=== PATIENT | female | born 1950 | race Caucasian/White ===

== ENCOUNTER 2021-12-29 02:44 | Inpatient (IN) | payer OTHER, MEDICARE ==
[~2021-12-29] VITALS: Ht 165.1 cm; Wt 66.5 kg
[2021-12-29] MEDS ORDERED: fentaNYL PF VIAL 100 MCG/2 ML VIAL IVP ONE (03:15)
[2021-12-29] MEDS ORDERED: IOHEXOL 300 MG/ML 100ML VIAL. IV ONE (03:15)
[2021-12-29] MEDS ORDERED: ONDANSETRON PF 4 MG/2 ML VIAL. IVP ONE (03:15)
[2021-12-29] MEDS ORDERED: IV NORMAL SALINE 1000ML BAG 1,000 ML IV ONE (03:15)
[2021-12-29 03:17] LABS: BASO % 1 % (0-3); EOS % 1 % (0-3); HEMATOCRIT 38.5 % (36.0-47.0); HEMOGLOBIN 12.6 g/dL (12.0-15.5); LYMPH # 1.3 x10^3/uL (1.0-4.8); LYMPH % 17 % (24-48); MEAN CORPUSCULAR HEMOGLOBIN 31 pg (25-35); MEAN CORPUSCULAR HGB CONC 33 g/dL (31-37); MEAN CORPUSCULAR VOLUME 95 fL (79-100); MONO # 0.4 x10^3/uL (0.0-1.1); MONO % 6 % (0-9); NEUT # 5.7 x10^3/uL (1.8-7.7); NEUT % 76 % (31-73); PLATELET COUNT 173 x10^3/uL (140-400); RED BLOOD COUNT 4.03 x10^6/uL (3.50-5.40); RED CELL DISTRIBUTION WIDTH 12.9 % (11.5-14.5); WHITE BLOOD COUNT 7.4 x10^3/uL (4.0-11.0)
--- NOTE | 2021-12-29 03:20 | PHYS DOC ---
Past Medical History Past Surgical History: Hysterectomy Adult General Chief Complaint Chief Complaint: ABDOMINAL PAIN HPI HPI The patient is a 72-year-old female without significant past medical history for which she takes daily medication per her report. She is status post total hyst erectomy in the past. When asked about prior colonoscopy results, she reports a history of diverticulosis. Ms. Reynaga presents for evaluation of acute onset of left lower quadrant > generalized abdominal discomfort with onset at 2 AM, about 1 hour prior to arrival, awakening her from sleep. She was in her normal state of health when she went to bed. She denies any history of similar discomfort in the past. Pain seems to radiate to the left low back. Severity 9 out of 10 at present. Character is achy and sharp. Associated nausea with 1 episode of nonbloody vomiting prior to arrival. No associated fevers, hematemesis, hematochezia or melena, upper respiratory congestion/rhinorrhea, cough, sore throat, shortness of breath or chest pain of any kind, flank pain, midline back pain, dysuria, hematuria, polyuria or oliguria, changes in bowel habits, pain or swelling to arms or legs. Patient is alert, pleasantly and appropriately interactive and in no acute distress with appropriate vital signs upon initial evaluation here in the emergency department. Review of Systems Review of Systems A 12 point review of systems was completed and was negative except where noted in HPI above. Current Medications Current Medications Current Medications Medications (Trade) Dose Ordered Sig/Yusef Start Time Stop Time Status Last Admin Dose Admin Fentanyl Citrate (Fentanyl 2ml Vial) 50 mcg 1X ONCE 12/29/21 03:15 12/29/21 03:16 DC 12/29/21 03:13 50 MCG Iohexol (Omnipaque 300 Mg/ml) 75 ml 1X ONCE 12/29/21 03:15 12/29/21 03:16 DC 12/29/21 03:40 75 ML Ketorolac Tromethamine (Toradol 15mg Vial) 15 mg 1X ONCE 12/29/21 04:45 12/29/21 04:46 DC 12/29/21 04:42 15 MG Morphine Sulfate (Morphine Sulfate) 2 mg 1X ONCE 12/29/21 04:45 12/29/21 04:46 DC 12/29/21 04:43 2 MG Ondansetron HCl (Zofran) 4 mg 1X ONCE 12/29/21 03:15 4/6/22 03:16 DC 12/29/21 03:14 4 MG Sodium Chloride 1,000 ml @ 1,000 mls/hr 1X ONCE 12/29/21 03:15 12/29/21 04:14 DC 12/29/21 03:14 1,000 MLS/HR Allergies Allergies Allergies Coded Allergies Type Severity Reaction Last Updated Verified acetaminophen Allergy Unknown 12/29/21 Yes oxycodone Allergy Unknown 12/29/21 Yes tramadol Allergy Unknown 12/29/21 Yes Physical Exam Physical Exam 72-year-old female appearing nontoxic and in no acute distress. Head is normocephalic and atraumatic. Neck is supple and nontender. Oropharynx is moist. Lungs are clear to auscultation at all stations. There is a normal S1 and S2 without rubs or gallops and capillary refill is appropriate, less than 2 seconds globally. Abdomen is soft and nondistended with mild focal left lower quadrant tenderness to palpation without rebound or guarding. No pulsatile irreducible mass. Skin is warm and dry without cyanosis, clubbing or edema. Psychiatrically, the patient demonstrates appropriate mood and affect and is alert. Evaluation of the extremities reveals BUEs and BLEs neurovascularly intact distally with strength out of 5, sensation intact light touch in all nerve distributions, radial, DP and PT pulses 2+ and equal bilaterally, capillary refill less than 2 seconds, hands and feet warm and well-perfused. No dependent peripheral edema distally. No calf tenderness or swelling bilaterally. Jay's test is negative bilaterally. Current Patient Data Vital Signs Vital Signs Date Time Temp Pulse Resp B/P (MAP) Pulse Ox O2 Delivery O2 Flow Rate FiO2 12/29/21 04:43 18 Room Air 12/29/21 02:54 97.7 65 153/68 (96) 97 97.7 Lab Values Laboratory Tests Test 12/29/21 03:07 12/29/21 03:57 White Blood Count 7.4 x10^3/uL (4.0-11.0) Red Blood Count 4.03 x10^6/uL (3.50-5.40) Hemoglobin 12.6 g/dL (12.0-15.5) Hematocrit 38.5 % (36.0-47.0) Mean Corpuscular Volume 95 fL (79-100) Mean Corpuscular Hemoglobin 31 pg (25-35) Mean Corpuscular Hemoglobin Concent 33 g/dL (31-37) Red Cell Distribution Width 12.9 % (11.5-14.5) Platelet Count 173 x10^3/uL (140-400) Neutrophils (%) (Auto) 76 % (31-73) H Lymphocytes (%) (Auto) 17 % (24-48) L Monocytes (%) (Auto) 6 % (0-9) Eosinophils (%) (Auto) 1 % (0-3) Basophils (%) (Auto) 1 % (0-3) Neutrophils # (Auto) 5.7 x10^3/uL (1.8-7.7) Lymphocytes # (Auto) 1.3 x10^3/uL (1.0-4.8) Monocytes # (Auto) 0.4 x10^3/uL (0.0-1.1) Eosinophils # (Auto) 0.0 x10^3/uL (0.0-0.7) Basophils # (Auto) 0.0 x10^3/uL (0.0-0.2) Sodium Level 143 mmol/L (136-145) Potassium Level 4.0 mmol/L (3.5-5.1) Chloride Level 108 mmol/L (98-107) H Carbon Dioxide Level 22 mmol/L (21-32) Anion Gap 13 (6-14) Blood Urea Nitrogen 29 mg/dL (7-20) H Creatinine 0.9 mg/dL (0.6-1.0) Estimated GFR (Cockcroft-Gault) 61.2 BUN/Creatinine Ratio 32 (6-20) H Glucose Level 119 mg/dL (70-99) H Lactic Acid Level 1.2 mmol/L (0.4-2.0) Calcium Level 9.1 mg/dL (8.5-10.1) Total Bilirubin 0.3 mg/dL (0.2-1.0) Aspartate Amino Transferase (AST) 19 U/L (15-37) Alanine Aminotransferase (ALT) 24 U/L (14-59) Alkaline Phosphatase 51 U/L (46-116) Troponin I High Sensitivity 7 ng/L (4-50) Total Protein 6.8 g/dL (6.4-8.2) Albumin 3.8 g/dL (3.4-5.0) Albumin/Globulin Ratio 1.3 (1.0-1.7) Lipase 114 U/L (73-393) Urine Collection Type Unknown Urine Color (Auto) Colorless Urine Turbidity Clear Urine pH (Auto) 6.5 (<5.0-8.0) Urine Specific [place] 1.012 (1.000-1.030) Urine Protein (Auto) Negative mg/dL (Negative) Urine Glucose (Auto)(UA) Negative mg/dL (Negative) Urine Ketones (Auto) Negative mg/dL (Negative) Urine Blood (Auto) Negative (Negative) Urine Nitrite Negative (Negative) Urine Bilirubin (Auto) Negative (Negative) Urine Urobilinogen (Auto) Normal mg/dL (Normal) Urine Leukocyte Esterase (Auto) Small (Negative) Urine RBC 6-10 /HPF (0-2) Urine WBC 5-10 /HPF (0-4) Urine Squamous Epithelial Cells Few /LPF Urine Amorphous Sediment Present /HPF Urine Bacteria 0 /HPF (0-FEW) Urine Mucus Slight /LPF Laboratory Tests 12/29/21 03:07 Laboratory Tests 12/29/21 03:07 EKG EKG [] Radiology/Procedures Radiology/Procedures Exam: CT abdomen/pelvis with intravenous contrast Indication: Left lower quadrant and lies abdominal pain, nausea and vomiting Comparison: None Technique: Helical CT imaging performed of the abdomen and pelvis after the intravenous administration of 75 mm Omnipaque 300 contrast. Sagittal and coronal reformats were obtained. One or more of the following individualized dose reduction techniques were utilized for this examination: 1. Automated exposure control 2. Adjustment of the mA and/or kV according to patient size 3. Use of iterative reconstruction technique. Findings: Lower chest: Mild interstitial opacities in the lung bases nonspecific. The heart is normal in size. Liver: The liver is normal in size. There are several small circumscribed hypodense liver lesions measuring up to 8 mm, too small to characterize but likely cysts or hemangiomas. Gallbladder/Biliary Tree: Normal. Pancreas: Normal. Spleen: Normal. Adrenal Glands: Normal. Kidneys/Ureters/Bladder: There is mild left hydronephrosis due to a 6 cm calculus in the mid left ureter. There is mild left perinephric fat stranding. There is bilateral nephrolithiasis with calculi measuring up to 5 mm on the right and 3 mm on the left. A subcentimeter hypodensity in the right kidney is too small to characterize but likely a simple cyst. Reproductive Organs: Uterus is surgically absent, no adnexal mass. Stomach, small bowel, and colon: The stomach and small bowel are normal. There is sigmoid diverticulosis. The appendix is normal. Vasculature: No aortic aneurysm. Lymph Nodes: No lymphadenopathy. Peritoneum and retroperitoneum: Free fluid or free air. Bones: No acute osseous abnormality. Miscellaneous: None. IMPRESSION: 1. Mild left hydronephrosis due to a 6 mm calculus in the mid left ureter. Bilateral nephrolithiasis. 2. Sigmoid diverticulosis. Electronically signed by: Ting Sepulveda MD (12/29/2021 4:21 AM) [facility] DICTATED and SIGNED BY: TING SEPULVEDA MD DATE: 12/29/21 0414 Course & Med Decision Making Course & Med Decision Making 72-year-old female with appropriate vital signs presents for evaluation of left lower quadrant abdominal discomfort with onset about an hour prior to arrival overnight. Does have a known history of diverticulosis. Will place IV and give IV fluids and medication for nausea and discomfort as noted and will check labs, EKG and a CT scan of the abdomen and pelvis with contrast. Will then reevaluate. 0500: Patient with 6 mm mid-ureteral stone on the left. Patient's pain is not well controlled after multiple rounds of medication. Discussed options with her and she would like to be admitted for pain control and urology consultation. Let her know we would be glad to facilitate that. Patient is graciously excepted for admission by Dr. Antoine Colmenares. Dragon Disclaimer Dragon Disclaimer This electronic medical record was generated, in whole or in part, using a voice recognition dictation system. Departure Departure Impression: Primary Impression: Left ureteral calculus Additional Impressions: Acute left lower quadrant pain Acute vomiting Disposition: ADMITTED INPATIENT Condition: STABLE Problem Qualifiers AMINA LAU MD Dec 29, 2021 03:20
[2021-12-29 03:25] LABS: CALCIUM 9.1 mg/dL (8.5-10.1); CREATININE 0.9 mg/dL (0.6-1.0); GFR 61.2
[2021-12-29 03:30] LABS: ALBUMIN 3.8 g/dL (3.4-5.0); ALBUMIN/GLOBULIN RATIO 1.3 (1.0-1.7); TOTAL BILIRUBIN 0.3 mg/dL (0.2-1.0); TOTAL PROTEIN 6.8 g/dL (6.4-8.2)
[2021-12-29 04:10] LABS: AMORPHOUS SEDIMENT,UR PRESENT /HPF; BACTERIA,URINE 0 /HPF (0-FEW)
--- NOTE | 2021-12-29 04:24 | RAD ---
Exam: CT abdomen/pelvis with intravenous contrast Indication: Left lower quadrant and lies abdominal pain, nausea and vomiting Comparison: None Technique: Helical CT imaging performed of the abdomen and pelvis after the intravenous administratio n of 75 mm Omnipaque 300 contrast. Sagittal and coronal reformats were obtained. One or more of the following individualized dose reduction techniques were utilized for this examinat ion: 1. Automated exposure control 2. Adjustment of the mA and/or kV according to patient size 3. Use of iterative reconstruction technique. Findings: Lower chest: Mild interstitial opacities in the lung bases nonspecific. The heart is normal in size. Liver: The liver is normal in size. There are several small circumscribed hypodense liver lesions jacy suring up to 8 mm, too small to characterize but likely cysts or hemangiomas. Gallbladder/Biliary Tree: Normal. Pancreas: Normal. Spleen: Normal. Adrenal Glands: Normal. Kidneys/Ureters/Bladder: There is mild left hydronephrosis due to a 6 cm calculus in the mid left ure ter. There is mild left perinephric fat stranding. There is bilateral nephrolithiasis with calculi me asuring up to 5 mm on the right and 3 mm on the left. A subcentimeter hypodensity in the right kidney is too small to characterize but likely a simple cyst. Reproductive Organs: Uterus is surgically absent, no adnexal mass. Stomach, small bowel, and colon: The stomach and small bowel are normal. There is sigmoid diverticulo sis. The appendix is normal. Vasculature: No aortic aneurysm. Lymph Nodes: No lymphadenopathy. Peritoneum and retroperitoneum: Free fluid or free air. Bones: No acute osseous abnormality. Miscellaneous: None. IMPRESSION: 1. Mild left hydronephrosis due to a 6 mm calculus in the mid left ureter. Bilateral nephrolithiasis . 2. Sigmoid diverticulosis. Electronically signed by: Ting Sepulveda MD (12/29/2021 4:21 AM) [facility]
[2021-12-29] MEDS ORDERED: KETOROLAC 15 MG/ML VIAL. IVP ONE (04:45)
[2021-12-29] MEDS ORDERED: MORPHINE SULFATE 2 MG/ML INJ. IVP ONE (04:45)
[2021-12-29] MEDS ORDERED: ONDANSETRON PF 4 MG/2 ML VIAL. IVP PRN (05:15)
[2021-12-29] MEDS ORDERED: MORPHINE SULFATE 2 MG/ML INJ. IVP PRN ×2 (05:15→15:15)
--- NOTE | 2021-12-29 05:41 | EKG ---
[facility] [address] [place] [address] Test Date: 2021-12-29 Test Time: 03:22:03 Pat Name: ALEISHA SERNA Department: Room: Gender: F [employer]: : [id number] Requested By: AMINA LAU Order Number: [id number] Reading MD: Dylan Clayton Measurements Intervals [place] Rate: 65 P: 90 TX: 154 QRS: 74 QRSD: 82 T: 70 QT: 424 QTc: 442 Interpretive Statements SINUS ARRHYTHMIA Electronically Signed On 01-08-2022 9:37:57 CDT by Dylan Clayton
[2021-12-29 06:30] VITALS: BP 114/55
[2021-12-29] MEDS: IV NORMAL SALINE 1000ML BAG 1,000 ML IV SCH ×3 (08:26→20:45)
[2021-12-29] MEDS ORDERED: MORPHINE SULFATE 4 MG/ML INJ. IVP PRN (08:45)
[2021-12-29 11:00] VITALS: BP 121/58
--- NOTE | 2021-12-29 13:09 | PDOC1 ---
History and Physical Date of Admission Date of Admission DATE: 12/29/21 TIME: 12:54 Source Source: Chart review, Patient History of Present Illness History of Present Illness LATE entry, pt seen 0830 Ms. Reynaga is a 72-year-old female without significant past medical history admit for lower pelvic pain, acute left flank pain, Ms. Reynaga presents for evaluation of acute onset of left lower quadrant > generalized abdominal discomfort with onset at 2 AM, about 1 hour prior to arrival, awakening her from sleep. She was in her normal state of health when she went to bed. She denies any history of similar discomfort in the past. Pain seems to radiate to the left low back. Severity 9 out of 10 at present. Character is achy and sharp. Associated nausea with 1 episode of nonbloody vomiting prior to arrival. No associated fevers, hematemesis, hematochezia or melena, upper respiratory congestion/rhinorrhea, cough, sore throat, shortness of breath or chest pain of any kind, flank pain, midline back pain, dysuria, hematuria, polyuria or oliguria, changes in bowel habits, pain or swelling to arms or legs. Past Medical History Cardiovascular: No pertinent hx Pulmonary: No pertinent hx GI: Diverticulosis Hepatobiliary: No pertinent hx Psych: No pertinent hx Musculoskeletal: low back pain Rheumatologic: No pertinent hx Infectious disease: No pertinent hx ENT: No pertinent hx Renal/: No pertinent hx Endocrine: No pertinent hx Past Surgical History Past Surgical History: Family History Family History: No Significant Social History Smoke: No ALCOHOL: none Drugs: None Current Problem List Problem List Problems Medical Problems: (1) Acute left lower quadrant pain Status: Acute (2) Acute vomiting Status: Acute (3) Left ureteral calculus Status: Acute Current Medications Current Medications Current Medications Sodium Chloride 1,000 ml @ 1,000 mls/hr 1X ONCE IV Last administered on 12/29/21at 03:14; Start 12/29/21 at 03:15; Stop 12/29/21 at 04:14; Status DC Ondansetron HCl (Zofran) 4 mg 1X ONCE IVP Last administered on 12/29/21at 03:14; Start 12/29/21 at 03:15; Stop 12/29/21 at 03:16; Status DC Fentanyl Citrate (Fentanyl 2ml Vial) 50 mcg 1X ONCE IVP Last administered on 12/29/21at 03:13; Start 12/29/21 at 03:15; Stop 12/29/21 at 03:16; Status DC Iohexol (Omnipaque 300 Mg/ml) 75 ml 1X ONCE IV Last administered on 12/29/21at 03:40; Start 12/29/21 at 03:15; Stop 12/29/21 at 03:16; Status DC Morphine Sulfate (Morphine Sulfate) 2 mg 1X ONCE IVP Last administered on 12/29/21at 04:43; Start 12/29/21 at 04:45; Stop 12/29/21 at 04:46; Status DC Ketorolac Tromethamine (Toradol 15mg Vial) 15 mg 1X ONCE IVP Last administered on 12/29/21at 04:42; Start 12/29/21 at 04:45; Stop 12/29/21 at 04:46; Status DC Ondansetron HCl (Zofran) 4 mg PRN Q8HRS PRN IVP NAUSEA/VOMITING; Start 12/29/21 at 05:15; Stop 12/30/21 at 05:14 Morphine Sulfate (Morphine Sulfate) 2 mg PRN Q2HR PRN IVP PAIN; Start 12/29/21 at 05:15; Stop 12/29/21 at 08:33; Status DC Sodium Chloride 1,000 ml @ 85 mls/hr [id number] IV Last administered on 12/29/21at 08:26; Start 12/29/21 at 05:15; Stop 12/30/21 at 05:14 Morphine Sulfate (Morphine Sulfate) 4 mg PRN Q2HR PRN IVP PAIN; Start 12/29/21 at 08:45; Stop 12/30/21 at 08:44 Allergies Allergies: Coded Allergies: acetaminophen (Verified Allergy, Unknown, 12/29/21) oxycodone (Verified Allergy, Unknown, 12/29/21) tramadol (Verified Allergy, Unknown, 12/29/21) ROS General: No: Chills, Night Sweats, Fatigue, Malaise, Appetite, Other PSYCHOLOGICAL ROS: No: Anxiety, Behavioral Disorder, Concentration difficultie, Decreased libido, Depression, Disorientation, Hallucinations, Hostility, Irritablity, Memory difficulties, Mood Swings, Obsessive thoughts, Physical abuse, Sexual abuse, Sleep disturbances, Suicidal ideation, Other Eyes: No Blurry vision, No Decreased vision, No Double vision, No Dry eyes, No Excessive tearing, No Eye Pain, No Itchy Eyes, No Loss of vision, No Photophobia, No Scotomata, No Uses contacts, No Uses glasses, No Other HEENT: No: Heacaches, Visual Changes, Hearing change, Nasal congestion, Nasal d ischarge, Oral lesions, Sinus pain, Sore Throat, Epistaxis, Sneezing, Snoring, Tinnitus, Vertigo, Vocal changes, Other Respiratory: No: Cough, Hemoptysis, Orthopnea, Pleuritic Pain, Shortness of breath, SOB with excertion, Sputum Changes, Stridor, Tachypnea, Wheezing, Other Cardiovascular: No Chest Pain, No Palpitations, No Orthopnea, No Paroxysmal Noc. Dyspnea, No Edema, No Lt Headedness, No Other Gastrointestinal: Yes Nausea, Yes Abdominal Pain Genitourinary: YES Pain, YES Flank Pain Musculoskeletal: No Gait Disturbance, No Joint Pain, No Joint Stiffness, No Joint Swelling, No Muscle Pain, No Muscular Weakness, No Pain In:, No Swelling In:, No Other Skin: No Dry Skin, No Eczema, No Hair Changes, No Lumps, No Mole Changes, No Mottling, No Nail Changes, No Pruritus, No Rash, No Skin Lesion Changes, No Other, No Acne Physical Exam General: Alert, Oriented X3, Cooperative, No acute distress HEENT: PERRLA, EOMI Lungs: Clear to auscultation, Normal air movement Heart: RRR, no gallops, no murmurs Rectal Exam: deferred Extremities: No edema Neuro: Normal speech, Normal tone, Sensation intact Psych/Mental Status: Mood NL Vitals Vitals Vital Signs Date Time Temp Pulse Resp B/P (MAP) Pulse Ox O2 Delivery O2 Flow Rate FiO2 12/29/21 11:00 98.3 17 121/58 (79) 93 Room Air 98.3 12/29/21 06:30 90 Labs Labs Laboratory Tests Test 12/29/21 03:07 12/29/21 03:57 White Blood Count 7.4 x10^3/uL (4.0-11.0) Red Blood Count 4.03 x10^6/uL (3.50-5.40) Hemoglobin 12.6 g/dL (12.0-15.5) Hematocrit 38.5 % (36.0-47.0) Mean Corpuscular Volume 95 fL (79-100) Mean Corpuscular Hemoglobin 31 pg (25-35) Mean Corpuscular Hemoglobin Concent 33 g/dL (31-37) Red Cell Distribution Width 12.9 % (11.5-14.5) Platelet Count 173 x10^3/uL (140-400) Neutrophils (%) (Auto) 76 % (31-73) Lymphocytes (%) (Auto) 17 % (24-48) Monocytes (%) (Auto) 6 % (0-9) Eosinophils (%) (Auto) 1 % (0-3) Basophils (%) (Auto) 1 % (0-3) Neutrophils # (Auto) 5.7 x10^3/uL (1.8-7.7) Lymphocytes # (Auto) 1.3 x10^3/uL (1.0-4.8) Monocytes # (Auto) 0.4 x10^3/uL (0.0-1.1) Eosinophils # (Auto) 0.0 x10^3/uL (0.0-0.7) Basophils # (Auto) 0.0 x10^3/uL (0.0-0.2) Sodium Level 143 mmol/L (136-145) Potassium Level 4.0 mmol/L (3.5-5.1) Chloride Level 108 mmol/L (98-107) Carbon Dioxide Level 22 mmol/L (21-32) Anion Gap 13 (6-14) Blood Urea Nitrogen 29 mg/dL (7-20) Creatinine 0.9 mg/dL (0.6-1.0) Estimated GFR (Cockcroft-Gault) 61.2 BUN/Creatinine Ratio 32 (6-20) Glucose Level 119 mg/dL (70-99) Lactic Acid Level 1.2 mmol/L (0.4-2.0) Calcium Level 9.1 mg/dL (8.5-10.1) Total Bilirubin 0.3 mg/dL (0.2-1.0) Aspartate Amino Transf (AST/SGOT) 19 U/L (15-37) Alanine Aminotransferase (ALT/SGPT) 24 U/L (14-59) Alkaline Phosphatase 51 U/L (46-116) Troponin I High Sensitivity 7 ng/L (4-50) Total Protein 6.8 g/dL (6.4-8.2) Albumin 3.8 g/dL (3.4-5.0) Albumin/Globulin Ratio 1.3 (1.0-1.7) Lipase 114 U/L (73-393) Urine Collection Type Unknown Urine Color (Auto) Colorless Urine Turbidity Clear Urine pH (Auto) 6.5 (<5.0-8.0) Urine Specific [place] 1.012 (1.000-1.030) Urine Protein (Auto) Negative mg/dL (Negative) Urine Glucose (Auto)(UA) Negative mg/dL (Negative) Urine Ketones (Auto) Negative mg/dL (Negative) Urine Blood (Auto) Negative (Negative) Urine Nitrite Negative (Negative) Urine Bilirubin (Auto) Negative (Negative) Urine Urobilinogen (Auto) Normal mg/dL (Normal) Urine Leukocyte Esterase (Auto) Small (Negative) Urine RBC 6-10 /HPF (0-2) Urine WBC 5-10 /HPF (0-4) Urine Squamous Epithelial Cells Few /LPF Urine Amorphous Sediment Present /HPF Urine Bacteria 0 /HPF (0-FEW) Urine Mucus Slight /LPF Laboratory Tests Test 12/29/21 03:07 12/29/21 03:57 White Blood Count 7.4 x10^3/uL (4.0-11.0) Red Blood Count 4.03 x10^6/uL (3.50-5.40) Hemoglobin 12.6 g/dL (12.0-15.5) Hematocrit 38.5 % (36.0-47.0) Mean Corpuscular Volume 95 fL (79-100) Mean Corpuscular Hemoglobin 31 pg (25-35) Mean Corpuscular Hemoglobin Concent 33 g/dL (31-37) Red Cell Distribution Width 12.9 % (11.5-14.5) Platelet Count 173 x10^3/uL (140-400) Neutrophils (%) (Auto) 76 % (31-73) Lymphocytes (%) (Auto) 17 % (24-48) Monocytes (%) (Auto) 6 % (0-9) Eosinophils (%) (Auto) 1 % (0-3) Basophils (%) (Auto) 1 % (0-3) Neutrophils # (Auto) 5.7 x10^3/uL (1.8-7.7) Lymphocytes # (Auto) 1.3 x10^3/uL (1.0-4.8) Monocytes # (Auto) 0.4 x10^3/uL (0.0-1.1) Eosinophils # (Auto) 0.0 x10^3/uL (0.0-0.7) Basophils # (Auto) 0.0 x10^3/uL (0.0-0.2) Sodium Level 143 mmol/L (136-145) Potassium Level 4.0 mmol/L (3.5-5.1) Chloride Level 108 mmol/L (98-107) Carbon Dioxide Level 22 mmol/L (21-32) Anion Gap 13 (6-14) Blood Urea Nitrogen 29 mg/dL (7-20) Creatinine 0.9 mg/dL (0.6-1.0) Estimated GFR (Cockcroft-Gault) 61.2 BUN/Creatinine Ratio 32 (6-20) Glucose Level 119 mg/dL (70-99) Lactic Acid Level 1.2 mmol/L (0.4-2.0) Calcium Level 9.1 mg/dL (8.5-10.1) Total Bilirubin 0.3 mg/dL (0.2-1.0) Aspartate Amino Transf (AST/SGOT) 19 U/L (15-37) Alanine Aminotransferase (ALT/SGPT) 24 U/L (14-59) Alkaline Phosphatase 51 U/L (46-116) Troponin I High Sensitivity 7 ng/L (4-50) Total Protein 6.8 g/dL (6.4-8.2) Albumin 3.8 g/dL (3.4-5.0) Albumin/Globulin Ratio 1.3 (1.0-1.7) Lipase 114 U/L (73-393) Urine Collection Type Unknown Urine Color (Auto) Colorless Urine Turbidity Clear Urine pH (Auto) 6.5 (<5.0-8.0) Urine Specific [place] 1.012 (1.000-1.030) Urine Protein (Auto) Negative mg/dL (Negative) Urine Glucose (Auto)(UA) Negative mg/dL (Negative) Urine Ketones (Auto) Negative mg/dL (Negative) Urine Blood (Auto) Negative (Negative) Urine Nitrite Negative (Negative) Urine Bilirubin (Auto) Negative (Negative) Urine Urobilinogen (Auto) Normal mg/dL (Normal) Urine Leukocyte Esterase (Auto) Small (Negative) Urine RBC 6-10 /HPF (0-2) Urine WBC 5-10 /HPF (0-4) Urine Squamous Epithelial Cells Few /LPF Urine Amorphous Sediment Present /HPF Urine Bacteria 0 /HPF (0-FEW) Urine Mucus Slight /LPF VTE Prophylaxis Ordered VTE Prophylaxis Devices: Yes VTE Pharmacological Prophylaxi: Yes Assessment/Plan Assessment/Plan acute flank pain - urolithiasis, pain control consult URO, pain better IMPRESSION: 1. Mild left hydronephrosis due to a 6 mm calculus in the mid left ureter. Bilateral nephrolithiasis. 2. Sigmoid diverticulosis. Justifications for Admission Other Justification JOSELYN BRAMBILA MD Dec 29, 2021 13:09
--- NOTE | 2021-12-29 13:58 | PDOC2 ---
UROLOGY CONSULT DOS: DATE: 12/29/21 TIME: 13:53 Reason for Consult: Kidney stone 72F is admitted to the hospital for left-sided flank pain. Patient states it started in the middle of the night. Sharp and constant in nature. Radiating from the left flank to the left groin. CT imaging performed in the ER shows a mid left ureteral 6 mm obstructing stone. She has a history of stones over 30 years ago that she passed spontaneously. She does not follow with urology regularly. She has never had any procedures or interventions. She denies fevers, gross hematuria, dysuria. Pain is currently controlled. She has been straining her urine throughout the day today and has not been able to pass the stone. Initially had some nausea and vomiting associated with the pain which has resolved. Past medical history significant for breast cancer in remission, takes daily anastrozole. She does not take anticoagulation. ROS Constitutional: Denies fevers, chills, weakness Cardiovascular: Denies chest pain, palpitations Respiratory: Denies shortness of breath, wheezing, dyspnea on exertion GI: + abdominal pain, nausea, vomiting : Denies dysuria, frequency, urgency, hematuria, urinary retention,+ flank pain Skin: Denies rash, bruising Musculoskeletal: Denies extremity pain, extremity edema Psychiatric: Denies stress, anxiety Past Surgical History: No pertinent history Current Medications Current Medications Sodium Chloride 1,000 ml @ 1,000 mls/hr 1X ONCE IV Last administered on 12/29/21at 03:14; Start 12/29/21 at 03:15; Stop 12/29/21 at 04:14; Status DC Ondansetron HCl (Zofran) 4 mg 1X ONCE IVP Last administered on 12/29/21at 03:14; Start 12/29/21 at 03:15; Stop 12/29/21 at 03:16; Status DC Fentanyl Citrate (Fentanyl 2ml Vial) 50 mcg 1X ONCE IVP Last administered on 12/29/21at 03:13; Start 12/29/21 at 03:15; Stop 12/29/21 at 03:16; Status DC Iohexol (Omnipaque 300 Mg/ml) 75 ml 1X ONCE IV Last administered on 12/29/21at 03:40; Start 12/29/21 at 03:15; Stop 12/29/21 at 03:16; Status DC Morphine Sulfate (Morphine Sulfate) 2 mg 1X ONCE IVP Last administered on 12/29/21at 04:43; Start 12/29/21 at 04:45; Stop 12/29/21 at 04:46; Status DC Ketorolac Tromethamine (Toradol 15mg Vial) 15 mg 1X ONCE IVP Last administered on 12/29/21at 04:42; Start 12/29/21 at 04:45; Stop 12/29/21 at 04:46; Status DC Ondansetron HCl (Zofran) 4 mg PRN Q8HRS PRN IVP NAUSEA/VOMITING; Start 12/29/21 at 05:15; Stop 12/30/21 at 05:14 Morphine Sulfate (Morphine Sulfate) 2 mg PRN Q2HR PRN IVP PAIN; Start 12/29/21 at 05:15; Stop 12/29/21 at 08:33; Status DC Sodium Chloride 1,000 ml @ 85 mls/hr [id number] IV Last administered on 12/29/21at 08:26; Start 12/29/21 at 05:15; Stop 12/30/21 at 05:14 Morphine Sulfate (Morphine Sulfate) 4 mg PRN Q2HR PRN IVP PAIN; Start 12/29/21 at 08:45; Stop 12/30/21 at 08:44 Allergies: Coded Allergies: acetaminophen (Verified Allergy, Unknown, 12/29/21) oxycodone (Verified Allergy, Unknown, 12/29/21) tramadol (Verified Allergy, Unknown, 12/29/21) Physical Examination GENERAL: awake, alert, oriented SKIN: warm, dry RESPIRATORY: Aerating well, symmetrical expansion GI: Soft, mild left lower quadrant tenderness, no guarding, no rebound : Normal anatomy, no lesions, left CVA tenderness MUSCULOSKELETAL: Moves all extremities, no edema NEURO: No gross abnormalities PSYCHIATRIC: Normal mood, normal affect, pleasant DOES THIS PATIENT HAVE URINARY: No VITALS Vital Signs Date Time Temp Pulse Resp B/P (MAP) Pulse Ox O2 Delivery O2 Flow Rate FiO2 12/29/21 11:00 98.3 17 121/58 (79) 93 Room Air 98.3 12/29/21 06:30 90 Labs Laboratory Tests Test 12/29/21 03:07 12/29/21 03:57 White Blood Count 7.4 x10^3/uL (4.0-11.0) Red Blood Count 4.03 x10^6/uL (3.50-5.40) Hemoglobin 12.6 g/dL (12.0-15.5) Hematocrit 38.5 % (36.0-47.0) Mean Corpuscular Volume 95 fL (79-100) Mean Corpuscular Hemoglobin 31 pg (25-35) Mean Corpuscular Hemoglobin Concent 33 g/dL (31-37) Red Cell Distribution Width 12.9 % (11.5-14.5) Platelet Count 173 x10^3/uL (140-400) Neutrophils (%) (Auto) 76 % (31-73) Lymphocytes (%) (Auto) 17 % (24-48) Monocytes (%) (Auto) 6 % (0-9) Eosinophils (%) (Auto) 1 % (0-3) Basophils (%) (Auto) 1 % (0-3) Neutrophils # (Auto) 5.7 x10^3/uL (1.8-7.7) Lymphocytes # (Auto) 1.3 x10^3/uL (1.0-4.8) Monocytes # (Auto) 0.4 x10^3/uL (0.0-1.1) Eosinophils # (Auto) 0.0 x10^3/uL (0.0-0.7) Basophils # (Auto) 0.0 x10^3/uL (0.0-0.2) Sodium Level 143 mmol/L (136-145) Potassium Level 4.0 mmol/L (3.5-5.1) Chloride Level 108 mmol/L (98-107) Carbon Dioxide Level 22 mmol/L (21-32) Anion Gap 13 (6-14) Blood Urea Nitrogen 29 mg/dL (7-20) Creatinine 0.9 mg/dL (0.6-1.0) Estimated GFR (Cockcroft-Gault) 61.2 BUN/Creatinine Ratio 32 (6-20) Glucose Level 119 mg/dL (70-99) Lactic Acid Level 1.2 mmol/L (0.4-2.0) Calcium Level 9.1 mg/dL (8.5-10.1) Total Bilirubin 0.3 mg/dL (0.2-1.0) Aspartate Amino Transf (AST/SGOT) 19 U/L (15-37) Alanine Aminotransferase (ALT/SGPT) 24 U/L (14-59) Alkaline Phosphatase 51 U/L (46-116) Troponin I High Sensitivity 7 ng/L (4-50) Total Protein 6.8 g/dL (6.4-8.2) Albumin 3.8 g/dL (3.4-5.0) Albumin/Globulin Ratio 1.3 (1.0-1.7) Lipase 114 U/L (73-393) Urine Collection Type Unknown Urine Color (Auto) Colorless Urine Turbidity Clear Urine pH (Auto) 6.5 (<5.0-8.0) Urine Specific [place] 1.012 (1.000-1.030) Urine Protein (Auto) Negative mg/dL (Negative) Urine Glucose (Auto)(UA) Negative mg/dL (Negative) Urine Ketones (Auto) Negative mg/dL (Negative) Urine Blood (Auto) Negative (Negative) Urine Nitrite Negative (Negative) Urine Bilirubin (Auto) Negative (Negative) Urine Urobilinogen (Auto) Normal mg/dL (Normal) Urine Leukocyte Esterase (Auto) Small (Negative) Urine RBC 6-10 /HPF (0-2) Urine WBC 5-10 /HPF (0-4) Urine Squamous Epithelial Cells Few /LPF Urine Amorphous Sediment Present /HPF Urine Bacteria 0 /HPF (0-FEW) Urine Mucus Slight /LPF Laboratory Tests Test 12/29/21 03:07 12/29/21 03:57 White Blood Count 7.4 x10^3/uL (4.0-11.0) Red Blood Count 4.03 x10^6/uL (3.50-5.40) Hemoglobin 12.6 g/dL (12.0-15.5) Hematocrit 38.5 % (36.0-47.0) Mean Corpuscular Volume 95 fL (79-100) Mean Corpuscular Hemoglobin 31 pg (25-35) Mean Corpuscular Hemoglobin Concent 33 g/dL (31-37) Red Cell Distribution Width 12.9 % (11.5-14.5) Platelet Count 173 x10^3/uL (140-400) Neutrophils (%) (Auto) 76 % (31-73) Lymphocytes (%) (Auto) 17 % (24-48) Monocytes (%) (Auto) 6 % (0-9) Eosinophils (%) (Auto) 1 % (0-3) Basophils (%) (Auto) 1 % (0-3) Neutrophils # (Auto) 5.7 x10^3/uL (1.8-7.7) Lymphocytes # (Auto) 1.3 x10^3/uL (1.0-4.8) Monocytes # (Auto) 0.4 x10^3/uL (0.0-1.1) Eosinophils # (Auto) 0.0 x10^3/uL (0.0-0.7) Basophils # (Auto) 0.0 x10^3/uL (0.0-0.2) Sodium Level 143 mmol/L (136-145) Potassium Level 4.0 mmol/L (3.5-5.1) Chloride Level 108 mmol/L (98-107) Carbon Dioxide Level 22 mmol/L (21-32) Anion Gap 13 (6-14) Blood Urea Nitrogen 29 mg/dL (7-20) Creatinine 0.9 mg/dL (0.6-1.0) Estimated GFR (Cockcroft-Gault) 61.2 BUN/Creatinine Ratio 32 (6-20) Glucose Level 119 mg/dL (70-99) Lactic Acid Level 1.2 mmol/L (0.4-2.0) Calcium Level 9.1 mg/dL (8.5-10.1) Total Bilirubin 0.3 mg/dL (0.2-1.0) Aspartate Amino Transf (AST/SGOT) 19 U/L (15-37) Alanine Aminotransferase (ALT/SGPT) 24 U/L (14-59) Alkaline Phosphatase 51 U/L (46-116) Troponin I High Sensitivity 7 ng/L (4-50) Total Protein 6.8 g/dL (6.4-8.2) Albumin 3.8 g/dL (3.4-5.0) Albumin/Globulin Ratio 1.3 (1.0-1.7) Lipase 114 U/L (73-393) Urine Collection Type Unknown Urine Color (Auto) Colorless Urine Turbidity Clear Urine pH (Auto) 6.5 (<5.0-8.0) Urine Specific [place] 1.012 (1.000-1.030) Urine Protein (Auto) Negative mg/dL (Negative) Urine Glucose (Auto)(UA) Negative mg/dL (Negative) Urine Ketones (Auto) Negative mg/dL (Negative) Urine Blood (Auto) Negative (Negative) Urine Nitrite Negative (Negative) Urine Bilirubin (Auto) Negative (Negative) Urine Urobilinogen (Auto) Normal mg/dL (Normal) Urine Leukocyte Esterase (Auto) Small (Negative) Urine RBC 6-10 /HPF (0-2) Urine WBC 5-10 /HPF (0-4) Urine Squamous Epithelial Cells Few /LPF Urine Amorphous Sediment Present /HPF Urine Bacteria 0 /HPF (0-FEW) Urine Mucus Slight /LPF Assessment/Plan --Kidney stone CT imaging showing a mid left ureteral 6 mm calculi with obstruction. Creatinine stable at 0.9, white count 7.4. UA without infection. She is not septic or toxic appearing. Discussed stone management options including observation, ESWL, ureteroscopy. We will proceed with cystoscopy, left-sided ureteroscopy, laser of stone and stent placement. Risks explained including bleeding, infection, injury to organs, complications with anesthesia, etc. Surgery scheduled at [address] Traore today. She has been n.p.o. Ancef ordered preoperatively. Consent to be obtained. Patient aware that she will need to remove the stent if a string is left in the next 3 to 5 days. We will have her follow-up in the office for stone prevention strategies as well as KUB in 3 months. Please have her call our office at [phone]. Urology to follow. D/w ADRIÁN Rizzo Dec 29, 2021 13:58
[2021-12-29 15:00] VITALS: BP 119/67
[2021-12-29] MEDS ORDERED: fentaNYL PF VIAL 100 MCG/2 ML VIAL IVP PRN ×2 (15:15)
[2021-12-29] MEDS ORDERED: HYDROmorphone 2 MG/ML INJ. IVP PRN (15:15)
[2021-12-29] MEDS ORDERED: IV RINGERS,LACTATED 1000ML 1,000 ML IV SCH (15:15)
[2021-12-29] MEDS ORDERED: PROCHLORPERAZINE 10 MG/2 ML VIAL. IVP PRN (15:15)
--- NOTE | 2021-12-29 15:21 | NUR ---
SS following for discharge planning. SS reviewed pt chart and discussed with pt RN. Pt is from home and is currently on room air. COVID19 negative. Urology consulted. Pt having surgical procedure with Urology today. SS will continue to follow for discharge planning.
--- NOTE | 2021-12-29 17:04 | NUR ---
Patient taken to surgery. Report called to Danielito MURRAY on . Patient can go home tonight if surgeon ok with doing that.
[2021-12-29] MEDS ORDERED: IOHEXOL 300 MG/ML 50 ML VIAL. ONE (17:49)
[2021-12-29] MEDS ORDERED: LIDOCAINE 2% JELLY 6ML IN APPLICATOR. ONE (17:50)
[2021-12-29] MEDS ORDERED: fentaNYL PF VIAL 100 MCG/2 ML VIAL ONE (19:29)
--- NOTE | 2021-12-29 20:35 | PDOC4 ---
OPERATIVE NOTE Pre-Op Diagnosis: Left mid ureteral stone Post-Op Diagnosis: Left mid ureteral stone Procedure Performed: 1. Cystoscopy with bilateral retrograde pyelograms. 2. Left ureteroscopy with stone laser and basketing of stone fragments. 3. Left ureteral stent placement Surgeon: Taras Traore MD Anesthesia Type: General Blood Loss: None Specimans Obtained: Left ureteral stone Findings: left ureteral stone Complications: None Operative Note: Once patient was taken to the operating room she was placed supine on operating table. General anesthetic was established. Patient's position was changed to a dorsolithotomy and genital area was prepped in usual surgical fashion. 21 Welsh rigid cystoscope was introduced into the bladder and bladder was inspected. No abnormalities were noted. Bladder retrograde pyelograms were performed using 5 Welsh open-ended catheter. No abnormalities were noted on the right side. On the left side we can appreciate the filling defect in the midportion of the ureter consistent with known mid ureteral stone. 0.035 guidewire was placed into the left ureter followed by 11/13 ureteral access sheath. Flexible ureteroscope was introduced into the ureter per access sheath and approximately 6 mm stone was systematically fragmented with holmium laser and fragments were taken out of the ureter with 0 tip basket. No inadvertent injuries to the ureter were noted on the way out. Using safety guidewire a 6 Welsh 24 cm double-J stent was placed into the left kidney under fluoroscopy guidance. Both proximal distal coils were observed. String was left attached. Patient's anesthesia was reversed and she was transported to postanesthesia care unit in stable condition. TARAS TRAORE MD Dec 29, 2021 20:35
[2021-12-29] MEDS ORDERED: DEXAMETHASONE SOD PHOS 4 MG/ML VIAL ONE (20:42)
[2021-12-29] MEDS ORDERED: ONDANSETRON PF 4 MG/2 ML VIAL. ONE (20:42)
[2021-12-29] MEDS ORDERED: LIDOCAINE 2% PF 5 ML VIAL. ONE (20:42)
[2021-12-29] MEDS ORDERED: SEVOFLURANE 61 TO 120 MINUTES. IH ONE (20:42)
[2021-12-29] MEDS ORDERED: PROPOFOL 10 MG/ML (20ML) VIAL. IV ONE (20:42)
[2021-12-29] MEDS ORDERED: NALOXONE 0.4 MG/ML VIAL. IV PRN (20:45)
[2021-12-29] MEDS ORDERED: diphenhydrAMINE HCL 25 MG CAPSULE PO PRN (20:45)
[2021-12-29] MEDS ORDERED: IV NORMAL SALINE 1000ML BAG 1,000 ML IV SCH (20:45)
[2021-12-29] MEDS ORDERED: KETOROLAC 15 MG/ML VIAL. IV PRN (20:45)
[2021-12-29] MEDS ORDERED: HYDROmorphone 2 MG/ML INJ. IV PRN (20:45)
[2021-12-29] MEDS ORDERED: 0.9 % SODIUM CHLORIDE 10 ML DISP.SYRIN. IV PRN (20:45)
[2021-12-29] MEDS: ACETAMINOPHEN 325 MG TABLET. PO SCH (22:00)
[2021-12-29] MEDS: GABAPENTIN 300 MG CAPSULE. PO SCH (22:00)
[2021-12-29 23:25] VITALS: BP 112/48
[2021-12-29 23:52] VITALS: BP 105/47
[2021-12-30 00:21] VITALS: BP 103/43
[2021-12-30] MEDS: IV NORMAL SALINE 1000ML BAG 1,000 ML IV SCH ×2 (04:47→10:05)
[2021-12-30] MEDS: ACETAMINOPHEN 325 MG TABLET. PO SCH ×2 (06:00→14:00)
[2021-12-30 07:00] VITALS: BP 96/50
[2021-12-30 07:45] LABS: BASO % 0 % (0-3); EOS % 0 % (0-3); HEMATOCRIT 36.5 % (36.0-47.0); HEMOGLOBIN 11.9 g/dL (12.0-15.5); LYMPH # 0.6 x10^3/uL (1.0-4.8); LYMPH % 15 % (24-48); MEAN CORPUSCULAR HEMOGLOBIN 31 pg (25-35); MEAN CORPUSCULAR HGB CONC 33 g/dL (31-37); MEAN CORPUSCULAR VOLUME 96 fL (79-100); MONO # 0.1 x10^3/uL (0.0-1.1); MONO % 4 % (0-9); NEUT % 81 % (31-73); PLATELET COUNT 170 x10^3/uL (140-400); RED CELL DISTRIBUTION WIDTH 13.2 % (11.5-14.5); WHITE BLOOD COUNT 3.7 x10^3/uL (4.0-11.0)
[2021-12-30 08:01] LABS: CALCIUM 8.9 mg/dL (8.5-10.1); CREATININE 0.7 mg/dL (0.6-1.0); POTASSIUM 4.2 mmol/L (3.5-5.1)
[2021-12-30] MEDS: GABAPENTIN 300 MG CAPSULE. PO SCH (09:01)
[2021-12-30 11:00] VITALS: BP 105/47
[2021-12-30] MEDS ORDERED: GABA300C18 PO (12:53)
--- NOTE | 2021-12-30 13:25 | PDOC ---
PROGRESS NOTE DATE OF SERVICE: DATE: 12/30/21 TIME: 13:22 CHIEF COMPLAINT: Having some mild left-sided renal colic. Otherwise no urinary complaints SUBJECTIVE: Problems: Problems Medical Problems: (1) Acute left lower quadrant pain Status: Acute (2) Acute vomiting Status: Acute (3) Left ureteral calculus Status: Acute OBJECTIVE: Vital Signs: Vital Signs Date Time Temp Pulse Resp B/P (MAP) Pulse Ox O2 Delivery O2 Flow Rate FiO2 12/30/21 11:00 97.6 89 18 105/47 (66) 95 Room Air 97.6 12/30/21 08:00 Room Air 12/30/21 07:00 98.1 78 18 96/50 (65) 93 Room Air 98.1 12/30/21 00:21 74 18 103/43 (63) 12/29/21 23:52 74 105/47 (66) 12/29/21 23:25 98.3 84 18 112/48 (69) 96 Room Air 98.3 12/29/21 21:07 97.7 67 18 129/58 96 Room Air 97.7 12/29/21 20:51 98.2 75 18 139/66 97 Room Air 98.2 12/29/21 20:40 Room Air 12/29/21 20:36 98.2 84 16 121/64 97 Room Air 98.2 12/29/21 17:12 98.9 76 17 137/68 97 98.9 12/29/21 15:00 98.8 17 119/67 (84) 96 Room Air 98.8 I & O Intake and Output 12/30/21 07:00 Intake Total 2070 ml Output Total 1850 ml Balance 220 ml Intake Oral 520 ml IV Total 1550 ml Output Urine Total 1850 ml # Voids 2 PHYSICAL EXAM: Physical Exam: General: Pleasant, no acute distress, well groomed Eyes: conjunctiva anicteric, eyes full range of motion ENT: moist oral mucosa, normal dentition Neck: Trachea midline, no masses Respiratory: unlabored breathing, not using accessory muscles, no crackles or w heezes : Stent string in place and easily visualized Abdomen: nontender, nondistended, no hepatosplenomegaly, no masses, mild left- sided CVA tenderness Skin: no rashes or skin lesions on visualized skin Psych: normal mood, affect. Alert and oriented x 3. LABS: Laboratory Tests Test 4/6/22 03:07 12/29/21 03:57 12/29/21 13:55 12/30/21 07:20 White Blood Count 7.4 x10^3/uL (4.0-11.0) 3.7 x10^3/uL (4.0-11.0) Red Blood Count 4.03 x10^6/uL (3.50-5.40) 3.80 x10^6/uL (3.50-5.40) Hemoglobin 12.6 g/dL (12.0-15.5) 11.9 g/dL (12.0-15.5) Hematocrit 38.5 % (36.0-47.0) 36.5 % (36.0-47.0) Mean Corpuscular Volume 95 fL (79-100) 96 fL (79-100) Mean Corpuscular Hemoglobin 31 pg (25-35) 31 pg (25-35) Mean Corpuscular Hemoglobin Concent 33 g/dL (31-37) 33 g/dL (31-37) Red Cell Distribution Width 12.9 % (11.5-14.5) 13.2 % (11.5-14.5) Platelet Count 173 x10^3/uL (140-400) 170 x10^3/uL (140-400) Neutrophils (%) (Auto) 76 % (31-73) 81 % (31-73) Lymphocytes (%) (Auto) 17 % (24-48) 15 % (24-48) Monocytes (%) (Auto) 6 % (0-9) 4 % (0-9) Eosinophils (%) (Auto) 1 % (0-3) 0 % (0-3) Basophils (%) (Auto) 1 % (0-3) 0 % (0-3) Neutrophils # (Auto) 5.7 x10^3/uL (1.8-7.7) 3.0 x10^3/uL (1.8-7.7) Lymphocytes # (Auto) 1.3 x10^3/uL (1.0-4.8) 0.6 x10^3/uL (1.0-4.8) Monocytes # (Auto) 0.4 x10^3/uL (0.0-1.1) 0.1 x10^3/uL (0.0-1.1) Eosinophils # (Auto) 0.0 x10^3/uL (0.0-0.7) 0.0 x10^3/uL (0.0-0.7) Basophils # (Auto) 0.0 x10^3/uL (0.0-0.2) 0.0 x10^3/uL (0.0-0.2) Sodium Level 143 mmol/L (136-145) 144 mmol/L (136-145) Potassium Level 4.0 mmol/L (3.5-5.1) 4.2 mmol/L (3.5-5.1) Chloride Level 108 mmol/L (98-107) 109 mmol/L (98-107) Carbon Dioxide Level 22 mmol/L (21-32) 22 mmol/L (21-32) Anion Gap 13 (6-14) 13 (6-14) Blood Urea Nitrogen 29 mg/dL (7-20) 17 mg/dL (7-20) Creatinine 0.9 mg/dL (0.6-1.0) 0.7 mg/dL (0.6-1.0) Estimated GFR (Cockcroft-Gault) 61.2 82.0 BUN/Creatinine Ratio 32 (6-20) Glucose Level 119 mg/dL (70-99) 105 mg/dL (70-99) Lactic Acid Level 1.2 mmol/L (0.4-2.0) Calcium Level 9.1 mg/dL (8.5-10.1) 8.9 mg/dL (8.5-10.1) Total Bilirubin 0.3 mg/dL (0.2-1.0) Aspartate Amino Transf (AST/SGOT) 19 U/L (15-37) Alanine Aminotransferase (ALT/SGPT) 24 U/L (14-59) Alkaline Phosphatase 51 U/L (46-116) Troponin I High Sensitivity 7 ng/L (4-50) Total Protein 6.8 g/dL (6.4-8.2) Albumin 3.8 g/dL (3.4-5.0) Albumin/Globulin Ratio 1.3 (1.0-1.7) Lipase 114 U/L (73-393) Urine Collection Type Unknown Urine Color (Auto) Colorless Urine Turbidity Clear Urine pH (Auto) 6.5 (<5.0-8.0) Urine Specific [place] 1.012 (1.000-1.030) Urine Protein (Auto) Negative mg/dL (Negative) Urine Glucose (Auto)(UA) Negative mg/dL (Negative) Urine Ketones (Auto) Negative mg/dL (Negative) Urine Blood (Auto) Negative (Negative) Urine Nitrite Negative (Negative) Urine Bilirubin (Auto) Negative (Negative) Urine Urobilinogen (Auto) Normal mg/dL (Normal) Urine Leukocyte Esterase (Auto) Small (Negative) Urine RBC 6-10 /HPF (0-2) Urine WBC 5-10 /HPF (0-4) Urine Squamous Epithelial Cells Few /LPF Urine Amorphous Sediment Present /HPF Urine Bacteria 0 /HPF (0-FEW) Urine Mucus Slight /LPF SARS-CoV-2 Antigen (Rapid) Negative (NEGATIVE) Microbiology 12/29/21 Urine Culture - Final, Complete MEDICATIONS: Current Medications Medications (Trade) Dose Ordered Sig/Yusef Start Time Stop Time Status Last Admin Dose Admin Acetaminophen (Tylenol) 650 mg Q8HRS 12/29/21 22:00 12/30/21 06:00 650 MG Cefazolin Sodium/ Dextrose 50 ml @ As Directed STK-MED ONCE 12/29/21 17:20 12/29/21 17:20 DC Dexamethasone Sodium Phosphate (Decadron) 4 mg STK-MED ONCE 12/29/21 20:42 12/29/21 20:42 DC Diphenhydramine HCl (Benadryl) 25 mg PRN Q6HRS PRN 12/29/21 20:45 Fentanyl Citrate (Fentanyl 2ml Vial) 100 mcg STK-MED ONCE 12/29/21 19:29 12/29/21 19:30 DC Gabapentin (Neurontin) 300 mg Q12HR 12/29/21 22:00 12/30/21 09:01 300 MG Hydromorphone HCl (Dilaudid) 0.2 mg PRN Q1HR PRN 12/29/21 20:45 Iohexol (Omnipaque 300 Mg/ml) 50 ml STK-MED ONCE 12/29/21 17:49 12/29/21 17:50 DC 12/29/21 19:39 50 ML Ketorolac Tromethamine (Toradol 15mg Vial) 15 mg PRN Q6HRS PRN 12/29/21 20:45 01/03/22 20:44 Lidocaine HCl (Glydo (Lidocaine) Jelly) 6 colleen STK-MED ONCE 12/29/21 17:50 12/29/21 17:50 DC Lidocaine HCl (Lidocaine Pf 2% Vial) 5 ml STK-MED ONCE 12/29/21 20:42 12/29/21 20:42 DC Morphine Sulfate (Morphine Sulfate) 1 mg PRN Q10MIN PRN 12/29/21 15:15 12/30/21 15:14 Naloxone HCl (Narcan) 0.4 mg PRN Q2MIN PRN 12/29/21 20:45 Ondansetron HCl (Zofran) 4 mg STK-MED ONCE 12/29/21 20:42 12/29/21 20:42 DC Prochlorperazine Edisylate (Compazine) 5 mg PACU PRN PRN 12/29/21 15:15 12/30/21 15:14 Propofol (Diprivan) 200 mg STK-MED ONCE 12/29/21 20:42 12/29/21 20:42 DC Ringer's Solution 1,000 ml @ 30 mls/hr Q24H 12/29/21 15:15 12/30/21 04:57 DC Sevoflurane (Ultane) 60 ml STK-MED ONCE 12/29/21 20:42 12/29/21 20:43 DC Sodium Chloride 1,000 ml @ 25 mls/hr Q24H 12/29/21 20:45 Sodium Chloride (Normal Saline Flush) 3 ml QSHIFT PRN 12/29/21 20:45 ASSESSMENT & PLAN --Kidney stone Status post cystoscopy, left ureteroscopy laser of stone and stent placement by Dr. Traore. Pain is currently controlled. Will start patient on oxybutynin 5 mg 3 times daily and Flomax to help with her renal colic. Please discharge with these prescriptions. Patient will remove her stent at home on Monday in the morning. She will call our office if she has any difficulty with stent removal. Patient to follow-up in 3 months in our clinic for kidney stone prevention strategies. Office #[phone]. may dc from urology standpoint Problem List: Problems Medical Problems: (1) Acute left lower quadrant pain Status: Acute (2) Acute vomiting Status: Acute (3) Left ureteral calculus Status: Acute ADRIÁN GRIFFITH Dec 30, 2021 13:24
--- NOTE | 2021-12-30 15:10 | NUR ---
Patient educated on discharge, diet, follow up and activity. unable to locate discharge signature paper but patient and daughter verbalized understanding of medications, activity level and follow up instructions and information. Denied any questions.
--- NOTE | 2021-12-31 17:15 | PATHOLOGY ---
[facility] Accession Number: [id number] . 01 Material submitted: . ureter - LEFT URETERAL STONE. Modifiers: left . 01 Clinical history: . CYSTOGRAM, L URETEROSCOPY W/ STENT PLACEMENT STONE LASER . 02 Diagnosis: Renal calculi: - Consistent with calculi. - The specimen is sent out for further processing. - Report pending outside analysis with results to follow in an addendum. . [facility] 12/31/2021 0952 Local . 02 Electronically signed: . Mk Miller MD, Pathologist NPI- [id number] . 02 Pathologist provided ICD-10: N20.2 . 02 CPT . 029015 Specimen Comment: A courtesy copy of this report has been sent to [phone], [phone] Specimen Comment: [id number], Specimen Comment: Report sent to , DR LOU / DR OMALLEY Specimen Comment: A duplicate report has been generated due to demographic updates. Performed at: 01 [facility] [address], [place] [id number] MD Stewart Teague MD Phone: [phone] Performed at: 02 [facility] [address] [place], [place] [id number] MD Mk Miller MD Phone: [phone]
== END 2021-12-30 15:10 | disposition home or self-care (01) | DRG 661 ==
LOC: ER 02:44 → 6 SOUTH 04:50 → EDBD 04:50 → 4 NORTH 21:55
PROVIDERS: ADMIT Internal Medicine; ATTEND Internal Medicine
PROC: 0T778DZ Dilation of Left Ureter with Intraluminal Device, Via Natural or Artificial Opening Endoscopic (ICD-10-PCS; 2021-12-29)
PROC: BT141ZZ Fluoroscopy of Kidneys, Ureters and Bladder using Low Osmolar Contrast (ICD-10-PCS; principal; 2021-12-29 18:00)
DX: N20.1 Calculus of ureter (principal); K57.30 Diverticulosis of large intestine without perforation or abscess without bleeding; N20.2 Calculus of kidney with calculus of ureter; Z85.3 Personal history of malignant neoplasm of breast; Z90.710 Acquired absence of both cervix and uterus
CPT/HCPCS: 36415; 74177; 76000; 80048; 80053; 81001; 83605; 83690; 84484; 85025; 87086; 87426; 88300; 93005; 96361; 96374; 96375; A4657; A4930; C1758; C1769; C1894; C2617; J0690; J1100; J1885; J2270; J2405; J2704; J3010; J7030; Q9967; 99285-25; G0378